=== PATIENT | male | born 2000 | race Caucasian/White ===

== ENCOUNTER 2024-11-27 14:49 | Emergency (ER) | payer BC, SELFPAY ==
[2024-11-27 14:57] VITALS: BP 123/60
[2024-11-27 15:39] LABS: Hematocrit 45.8 % (39.0-52.0); Hemoglobin 15.0 g/dL (13.0-18.0); Mean Corp Hgb Conc. 32.8 g/dL (33.0-37.0); Mean Corpuscular Volume 89.6 fL (80.0-94.0); Nucleated Red Blood Cells % 0 % (-); Platelet Count 219 10^3/uL (130-400); Red Cell Dist. Width 11.4 % (11.5-14.5)
[2024-11-27 15:41] LABS: Urine Character Clear (Clear)
[2024-11-27 15:47] LABS: ALT (SGPT) 24 U/L (0-50); AST (SGOT) 27 U/L (17-59); Albumin 5.0 g/dl (3.5-5.0); Alkaline Phosphatase 59 U/L (38-126); Blood Urea Nitrogen 16 mg/dl (9-20); Calcium 9.5 mg/dl (8.4-10.2); Carbon Dioxide 28 mmol/L (22-30); Chloride 103 mmol/L (98-107); Glucose 90 mg/dl (70-99); Potassium 4.0 mmol/L (3.5-5.1); Sodium 139 mmol/L (135-145); Total Protein 8.1 g/dl (6.3-8.2); eGFR > 60.00
[2024-11-27 15:55] LABS: Troponin I < 0.012 ng/ml
[2024-11-27 17:34] VITALS: BP 134/65; BMI 23.2
--- NOTE | 2024-11-27 17:34 | ED.GENMED ---
History of Present Illness
General
Chief Complaint: Breathing Problem
Source: patient and family
Time Seen by Provider: 11/27/24 17:03
History of Present Illness
History of Present Illness:
This patient is a 24-year-old male who states that he is perfectly healthy at baseline, does not take meds, runs marathons. He was seen at work yesterday when he got a 'wave' of feeling dyspneic associated with lightheadedness and 'heartburn'.
This lasted approximately a minute. He states that he felt 'spooked', and went home, took a nap, and then went to the emergency department. He had a workup in the ED which included labs including troponin, ECG, and chest x-ray, and was discharged
home with instructions to take an H2 rainer for presumed reflux. Patient is concerned that he does not have what he feels is a reasonable explanation for his symptoms and presents to the ED today for a 'second opinion'. He feels well now. He
states that since yesterday he does have episodes of lightheadedness, very mild, on and off, as well as seconds worth of dyspnea 'here and there'. He denies diaphoresis, nausea, vomiting, leg swelling, fever, chills, anorexia. Patient did take a
flight to [place] approximately 2 weeks ago but denies calf swelling or pain. He occasionally gets a 'tight' feeling in the left upper quadrant/epigastric area without radiation, exacerbating, relieving factors.
Past History
Past History
ED Past Medical History: None
ED Past Surgical History: Other (wisdom teeth)
Social History
Tobacco: Non-smoker
Alcohol: Occasional
Drug: None
Personal: Single
Living: with family
Employment: Employed
Phy Exam
Physical Exam
Physical Exam:
GENERAL: Alert , in no apparent distress
EYE: pupils equal and reactive
NECK: Supple, no significant adenopathy.
ENT: o/p clr, mmm.
CARDIAC: Regular rate and rhythm .
LUNGS: Clear breath sounds bilaterally, no acute respiratory distress, no wheezes/rales/rhonchi
ABDOMEN: Soft, without focal tenderness, no r/g, no cvat
NEUROLOGICAL: Alert and oriented, no focal neuro deficits
SKIN: Warm and dry, skin intact.
MUSCULOSKELETAL: No edema, well perfused.
PSYCH: Normal and appropriate interaction.
Course
Orders/Labs/Results
Orders:
Orders
11/27/24 15:02
Electrocardiogram (*1) Urgent
Reason for Study: Chest Pain
EKG- Treatment ONCE
11/27/24 15:08
Urinalysis Reflex To Culture Urgent
Date Specimen was Collected: 11/27/24
Time Specimen was Collected: 15:02
11/27/24 15:13
Complete Blood Count/With Diff Urgent
Comprehensive Metabolic Panel Urgent
Lipase Urgent
Comment: ADD ON
Troponin I Urgent
11/27/24 17:31
Add On- LAB Urgent
Tests Added?: lipase
US Abdomen Complete/Upper Urgent
Comment:
Reason For Exam: upper abd pain
11/27/24 17:44
D-Dimer Urgent
Abnormal Lab Results
11/27/24
15:13
MCHC 32.8 L g/dL
(33.0-37.0)
RDW 11.4 L %
(11.5-14.5)
11/27/24 15:13
11/27/24 15:13
Vital Signs
Initial and Last Documented VS:
Initial Vital Signs
Temp Pulse Resp BP Pulse Ox
98.5 F 63 16 123/60 100
11/27/24 14:57 11/27/24 14:57 11/27/24 14:57 11/27/24 14:57 11/27/24 14:57
Last Documented Vital Signs
Temp Pulse Resp BP Pulse Ox
98.5 F 45 16 139/59 98
11/27/24 14:57 11/27/24 19:16 11/27/24 14:57 11/27/24 19:16 11/27/24 19:16
*Pulse Oximetry
SaO2: 100
Oxygen Mode of Delivery: Room air
Patient hypoxic: no
*Critical Care Note
Total Time (30-74mins, 75-104mins- exclusive of procedures): Not Applicable
Update Note
Update Note:
Patient presents to the Emergency Department with dyspnea, lightheadedness
Number and Complexity of Problems Addressed at the Encounter
� Chronic conditions affecting care:
� Acute Exacerbation and/or Progression of Chronic Illness:
� Differential Diagnosis includes: But not limited to vasovagal events, PE, arrhythmia, PVC, electrolyte disorder, etc. etc.
Amount and/or Complexity of Data to be Reviewed and Analyzed
� I performed an independent evaluation of and my interpretation is:
EKG: Sinus bradycardia, no acute ischemia.
CT:
Xrays:
Laboratory Studies:unremarkable, d dimer wnl
Other:us Borderline splenomegaly. Otherwise unremarkable abdominal ultrasound, as detailed above. Patient given copy of this report and told the importance of follow-up regarding
� Review of other/old records reveals:
� Clinical information was obtained by an independent historian:
� Prescriptions/Medications Considered but not given:
� Further testing considered but not performed:
Risk of Complications and/or Morbidity or Mortality of Patient Management
� Social determinants of health affecting care:
� Discussion with other providers (PCP, Hospitalists, Consultants, etc):
� Escalation of care including admission/observation vs risk of discharge considered: 7:48 PM reassessment patient awake alert stable vital signs, states bradycardia is normal for him, no associated symptoms such as dizziness,
dyspnea, etc. Discussed with patient portance of follow-up and reasons return to ER.
ED Attending Note
-
Portions of this chart may have been created with voice recognition software.� Occasional wrong word or��sound alike� substitutions may have occurred due to the inherent limitations of voice recognition software.
Discharge Plan
Departure
Patient Disposition: Home (Routine Discharge)
Date of Disposition: 11/27/24
Time of Disposition: 19:47
Patient with high blood pressure during this ER visit?: Yes
Condition: Good
Discharge Problem:
Dyspnea
Instructions: Shortness of Breath (Dyspnea) (DC), BLOOD PRESSURE
Prescriptions:
No Action
No Current Medications
0
Referrals:
Darrius Garcia DO [Family Provider, Family Practice] - Next open appointment
Activity Restrictions/Additional Instructions:
IF YOU DEVELOP RECURRENT SHORTNESS OF BREATH, ANY CHEST PAIN, FEVER, VOMITING, ABDOMINAL PAIN, DIZZINESS, OR OTHER WORRISOME SIGNS, PLEASE RETURN TO THE ER IMMEDIATELY! YOUR SPLEEN WAS NOTED TO BE VERY MILDLY ENLARGED ON ULTRASOUND HERE, PLEASE
FOLLOW-UP WITH YOUR DOCTOR REGARDING THE REPORT ATTACHED.
Interventions
Interventions:
*Risk Screen - Suicide Last Done: 11/27/24 14:57
*General Assessment Last Done: 11/27/24 17:37
*Neglect/Abuse Screening Last Done: 11/27/24 14:57
*ED- Fall Risk Assessment Last Done: 11/27/24 17:37
*ED COVID-19 Vaccine History Last Done: 11/27/24 17:37
*ED Influenza Vaccine History Last Done: 11/27/24 17:37
ED- Cardiac Assessment Last Done: 11/27/24 17:43
ED- Pulmonary Assessment Last Done: 11/27/24 17:43
Discharge Date and Time
Print Language: CANADIAN
[2024-11-27 18:00] VITALS: BP 125/64
[2024-11-27 18:03] LABS: Lipase 103 U/L (23-300)
[2024-11-27 18:12] LABS: D-Dimer < 0.27 ug/mlFEU (0.00-0.50)
[2024-11-27 19:16] VITALS: BP 139/59
--- NOTE | 2024-11-27 20:06 | EDRN ---
Discharge instructions reviewed, no further questions or concerns at this time. Pt ambulated with steady gait to waiting room exit. Ultrasound results provided with paperwork.
== END 2024-11-27 20:08 | disposition home or self-care (01) ==
LOC: EMR 14:49
PROVIDERS: Emergency Medicine; EMERGENCY PHYSICIAN Emergency Medicine; FAMILY PHYSICIAN Family Medicine
DX: R06.00 Dyspnea, unspecified (principal)
CPT/HCPCS: 99284; 76700; 80053; 81003; 83690; 84484; 85025; 85379; 93005